=== PATIENT | male | born 1995 | race Caucasian/White ===

== ENCOUNTER 2021-09-02 15:07 | Emergency (ER) | payer OTHER ==
[~2021-09-02] VITALS: Ht 180.3 cm; Wt 108.0 kg
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
[2021-09-02 15:31] LABS: HEMATOCRIT 44 % (40-54); HEMOGLOBIN 15.8 g/dL (13.3-17.7); MEAN CORPUSCULAR HEMOGLOBIN 30 pg (25-34); MEAN CORPUSCULAR HGB CONC 36 g/dL (32-36); MEAN CORPUSCULAR VOLUME 84 fL (80-99); MEAN PLATELET VOLUME 11.6 fL (9.0-12.2); PLATELET COUNT 169 10^3/uL (130-400); WHITE BLOOD COUNT 6.7 10^3/uL (4.3-11.0)
[2021-09-02 15:32] LABS: ALBUMIN 4.3 GM/DL (3.2-4.5); CHLORIDE 104 MMOL/L (98-107); POTASSIUM 3.4 MMOL/L (3.6-5.0); SODIUM 138 MMOL/L (135-145)
[2021-09-02 15:34] LABS: CALCIUM 8.9 MG/DL (8.5-10.1)
[2021-09-02 15:35] LABS: GLUCOSE 101 MG/DL (70-105); TOTAL PROTEIN 7.4 GM/DL (6.4-8.2)
[2021-09-02 15:36] LABS: CARBON DIOXIDE 18 MMOL/L (21-32)
[2021-09-02 15:37] LABS: BILIRUBIN,TOTAL 0.9 MG/DL (0.1-1.0)
[2021-09-02 15:38] LABS: ALKALINE PHOSPHATASE 111 U/L (40-136)
[2021-09-02 15:39] LABS: CREATININE SERUM 1.04 MG/DL (0.60-1.30); GFR ESTIMATED 102
[2021-09-02 15:40] LABS: BILIRUBIN,DIRECT 0.4 MG/DL (0.0-0.3); BILIRUBIN,INDIRECT 0.5 MG/DL; BUN/CREATININE RATIO 13
[2021-09-02 15:42] LABS: ALANINE AMINOTRANSFERASE 71 U/L (0-55)
[2021-09-02 16:15] LABS: BILIRUBIN,URINE NEGATIVE (NEGATIVE); CLARITY,URINE CLEAR; COLOR,URINE YELLOW; GLUCOSE, URINE (UA) NEGATIVE (NEGATIVE); KETONES,URINE NEGATIVE (NEGATIVE); LEUKOCYTE ESTERASE ,URINE NEGATIVE (NEGATIVE); NITRITE,URINE NEGATIVE (NEGATIVE); PROTEIN,URINE NEGATIVE (NEGATIVE)
[2021-09-02 16:25] LABS: BACTERIA,URINE NEGATIVE /HPF
[2021-09-02] MEDS ORDERED: KETOROLAC 30 MG/ML VIAL IVP ONE (16:30)
[2021-09-02 17:25] VITALS: BP 159/90
== END 2021-09-02 17:35 | disposition home or self-care (01) ==
LOC: ER 15:09
DX: T24.111A Burn of first degree of right thigh, initial encounter (principal); T20.15XA Burn of first degree of scalp [any part], initial encounter; S40.012A Contusion of left shoulder, initial encounter; S00.512A Abrasion of oral cavity, initial encounter; V58.5XXA Driver of pick-up truck or van injured in noncollision transport accident in traffic accident, initial encounter; Y92.410 Unspecified street and highway as the place of occurrence of the external cause
CPT/HCPCS: 80048; 80076; 81000; 85027; 86850; 86900; 86901; 99284; G0480; 36415; 80320